=== PATIENT | male | born 1955 | race Hispanic/Latino ===

== ENCOUNTER 2019-03-28 01:56 | Inpatient (IN) | payer OTHER ==
[~2019-03-28] VITALS: Ht 172.7 cm; Wt 98.0 kg
[2019-03-28] VITALS (17 sets, daily range): BP systolic 97–179; BP diastolic 56–81
--- NOTE | 2019-03-28 03:00 | NUR ---
Patient arrived on unit. C/O 12/03 intermittent chest pain. No s/s or distress. Vitals WNL Denies SOB. Patient ambulates with steady gait. Consent for Heart Cath and new admission paperwork signed. Patient clipped and prepped for Heart Cath. Will bring home meds. AJ, FACE MAN aware patient has arrived.
[2019-03-28] MEDS ORDERED: ONDANSETRON HCL 4 MG/2 ML VIAL IV PRN (03:45)
[2019-03-28 04:53] LABS: BASOPHILS % (AUTO) 0.5 % (0.0-5.0); HEMATOCRIT 39.1 % (42-54); MEAN CORPUSCULAR HGB CONC 36.4 g/dL (32.0-36.0); MEAN CORPUSCULAR VOLUME 93.3 fL (79-99); MONOCYTES % (AUTO) 10.1 % (3.0-13.0); NEUTROPHILS % (AUTO) 54.4 % (40.0-77.0); NUCLEATED RED BLOOD CELLS 0.1 % (0.0-0.19); PLATELET COUNT (AUTO) 124 K/uL (130-400); RED BLOOD CELL COUNT(AUTO) 4.19 MIL/uL (4.50-6.20); RED CELL DISTRIBUTION WIDTH 12.5 % (11.0-15.5); WHITE BLOOD COUNT (AUTO) 5.2 K/uL (4.8-10.8)
[2019-03-28 05:08] LABS: ALBUMIN 3.8 g/dL (3.5-5.0); BILIRUBIN,TOTAL 0.8 mg/dL (0.2-1.0); TOTAL PROTEIN, SERUM 6.7 g/dL (6.0-8.3)
[2019-03-28] MEDS: INSULIN HUMULIN R 100 UNIT/ML 3ML SQ SCH ×4 (06:21→21:00)
--- NOTE | 2019-03-28 07:35 | NUR ---
ASSESSMENT ENCOUNTERED PT A&OX3, CALM COOPERATIVE AND DOES NOT APPEAR TO BE IN ANY DISTRESS NOR ANY NEURO DEFICITS PRESENT. PT DENIES PAIN, SOB, NAUSEA. PT IS AMBULATORY, GAIT STEADY AND STRONG WITH STAND BY ASSIST. PT IS NPO FOR [facility] BY DR ARREDONDO, CALL LIGHT WITHIN REACH, FAMILY AT BEDSIDE.
[2019-03-28] MEDS ORDERED: NITROGLYCERIN 0.4 MG SL TAB SL ONE (08:31)
[2019-03-28] MEDS: MORPHINE SULFATE 4 MG/1ML SYG IV PRN ×2 (08:35→12:10)
--- NOTE | 2019-03-28 08:35 | NUR ---
HEADACHE PAIN SCALE 8/10, TO NUCHAL AREA, PAIN WITH TURNING, NO NEURO DEFICITS, MORPHINE 2MG IV GIVEN.
[2019-03-28] MEDS: FAMOTIDINE/PF 20 MG/2 ML VIAL IV SCH ×2 (08:37→20:06)
[2019-03-28] MEDS ORDERED: METF-446 PO (09:04)
[2019-03-28] MEDS ORDERED: METO-408 PO (09:04)
[2019-03-28] MEDS ORDERED: LOSA25TA41 PO (09:04)
[2019-03-28] MEDS ORDERED: METF-445 PO (09:04)
[2019-03-28] MEDS ORDERED: PRAS5TAB6 PO (09:04)
[2019-03-28] MEDS ORDERED: ATOR-2 PO (09:04)
[2019-03-28] MEDS ORDERED: FENO145T37 PO (09:04)
--- NOTE | 2019-03-28 12:07 | NUR ---
DC PLAN VISITED WITH PATIENT. PATIENT LIVES WITH SPOUSE. INDEPENDENT ABLE TO PERFORM ADL'S. PATIENT HAS NO SERVICES OR DME'S. FEELS SAFE TO RETURN HOME. Addendum: 03/28/19 at 1209 by JOVITA LALA RN CM Amended: Links added.
--- NOTE | 2019-03-28 12:10 | NUR ---
HEADACHE RETURNS, 06/02, DR HOLLIS UPDATED, ORDERS RECEIVED
[2019-03-28] MEDS ORDERED: HEPARIN SODIUM 1000UNIT/ML 10ML VIAL IV ONE (12:44)
[2019-03-28] MEDS ORDERED: CALCIUM CHLORIDE 100 MG/ML 10 ML SYG IVP ONE (12:44)
--- NOTE | 2019-03-28 15:50 | NUR ---
Duglas ABEBE PA-C AT BEDSIDE UPDATE GIVEN, ORDERS RECEIVED.
[2019-03-28] MEDS ORDERED: TROLAMINE SALICYLATE CREAM 85 GM TUBE TP PRN (16:00)
[2019-03-28] MEDS ORDERED: LIDOCAINE HCL 2% 20ML ONE (17:55)
[2019-03-28] MEDS ORDERED: IOHEXOL-350 50ML VIAL IV ONE (17:55)
[2019-03-28] MEDS ORDERED: NITROGLYCERIN 5 MG/ML 10 ML VIAL IV ONE (17:55)
[2019-03-28] MEDS ORDERED: IOHEXOL 350 MG/ML 100ML INFUS..BTL IV ONE (17:55)
[2019-03-28] MEDS ORDERED: MIDAZOLAM HCL 1 MG/ML 2ML VIAL ONE (18:00)
[2019-03-28] MEDS ORDERED: FENTANYL CITRATE PF 50 MCG/1 ML 2ML VIAL ONE (18:00)
[2019-03-28] MEDS ORDERED: LABETALOL HCL 5 MG/ML 20ML VIAL IV ONE (18:20)
[2019-03-28] MEDS ORDERED: SODIUM CHLORIDE 0.9% 1000ML 1,000 ML IV SCH (18:24)
[2019-03-28] MEDS ORDERED: HYDRALAZINE HCL 20 MG/ML VIAL IV PRN (18:30)
[2019-03-28] MEDS ORDERED: METOPROLOL TARTRATE 1 MG/ML 5ML VIAL IV PRN (18:30)
--- NOTE | 2019-03-28 18:30 | NUR ---
POST PROCEDURE RECEIVED PT FROM CHEMICAL DETECTION EXPERT IN FLAT POSITION, A&OX3, CALM COOPERATIVE AND DOES NOT APPEAR TO BE IN ANY DISTRESS NOR ANY NEURO DEFICITS PRESENT. 6FR SHEATH TO RT GROIN, SITE DRY AND INTACT. CALL LIGHT WITHIN REACH, FAMILY AT BEDSIDE.
--- NOTE | 2019-03-28 19:25 | NUR ---
RIGHT FEMORAL SHEATH PULLED AT THIS TIME. PRESSURE APPLIED FOR 30 MINUTES. MINIMAL BLEEDING NOTED. BILATERAL DORSALIS PEDIS AND POSTERIOR TIBIAL PULSES NOTED. INCISION SITE DRESSED WITH A 4X4 GAUZE AND TRANSPARENT DRESSING. PATIENT INSTRUCTED TO REMAIN FLAT FOR 6 HOURS. PATIENT VERBALIZED UNDERSTANDING
[2019-03-28] MEDS: ATORVASTATIN CALCIUM 20 MG TABLET PO SCH (20:06)
[2019-03-28] MEDS: CARVEDILOL 6.25 MG TABLET PO SCH (20:07)
[2019-03-28] MEDS ORDERED: INSULIN HUMULIN R 100 UNIT/ML 3ML SQ SCH (21:00)
[2019-03-28] MEDS ORDERED: LISINOPRIL 5 MG TABLET PO SCH (21:00)
[2019-03-29] VITALS (22 sets, daily range): BP systolic 109–172; BP diastolic 51–74
[2019-03-29] MEDS ORDERED: ACETAMINOPHEN 325 MG TAB ONE (03:06)
[2019-03-29] MEDS ORDERED: CYCLOBENZAPRINE HCL 10 MG TABLET PO PRN (03:15)
[2019-03-29] MEDS ORDERED: ACETAMINOPHEN 325 MG TAB PO PRN ×3 (03:15→14:45)
[2019-03-29 03:34] LABS: BASOPHILS % (AUTO) 0.6 % (0.0-5.0); EOSINOPHILS % (AUTO) 1.3 % (0.0-8.0); HEMATOCRIT 40.9 % (42-54); LYMPHOCYTES % (AUTO) 23.4 % (21.0-51.0); MEAN CORPUSCULAR HEMOGLOBIN 32.4 pg (27.0-33.0); MEAN CORPUSCULAR HGB CONC 34.4 g/dL (32.0-36.0); MEAN CORPUSCULAR VOLUME 94.2 fL (79-99); MONOCYTES % (AUTO) 11.5 % (3.0-13.0); NEUTROPHILS % (AUTO) 63.2 % (40.0-77.0); PLATELET COUNT (AUTO) 127 K/uL (130-400); RED BLOOD CELL COUNT(AUTO) 4.34 MIL/uL (4.50-6.20); RED CELL DISTRIBUTION WIDTH 12.8 % (11.0-15.5); WHITE BLOOD COUNT (AUTO) 6.2 K/uL (4.8-10.8)
[2019-03-29 03:48] LABS: CREATININE 0.9 mg/dL (0.5-1.5); POTASSIUM 4.5 mmol/L (3.5-5.1)
[2019-03-29 04:04] LABS: B-TYPE NATRIURETIC PEPTIDE 79 pg/mL (0-100)
[2019-03-29] MEDS: INSULIN HUMULIN R 100 UNIT/ML 3ML SQ SCH (06:37)
--- NOTE | 2019-03-29 07:35 | NUR ---
ASSESSMENT ENCOUNTERED PT A&OX3, CALM COOPERATIVE AND DOES NOT APPEAR TO BE IN ANY DISTRESS NOR ANY NEURO DEFICITS PRESENT. PT DENIES PAIN, SOB, NAUSEA. RT GROIN SOFT NONTENDER WITH NO OOZING OR HEMATOMA PRESENT. DP/PT PULSES PALPABLE. PT IS NPO UNTIL SEEN BY DR LIN FOR POSSIBLE CABG. CALL LIGHT WITHIN REACH, FAMILY AT BEDSIDE.
--- NOTE | 2019-03-29 07:45 | NUR ---
DR LIN AT BEDSIDE UPDATE GIVEN, ORDERS RECEIVED FOR CABG.
[2019-03-29 08:03] LABS: HEMOGLOBIN A1C 7.7 % (4.0-6.0)
[2019-03-29 08:07] LABS: INR 0.98 (0.85-1.15); PROTHROMBIN TIME 10.3 SEC (9.6-11.6)
[2019-03-29] MEDS ORDERED: ISOSORBIDE MONO 30MG TAB SR PO SCH (09:00)
[2019-03-29] MEDS: ASPIRIN 325MG EC TAB 325 MG TABLET.DR PO SCH (09:00)
[2019-03-29] MEDS: CARVEDILOL 6.25 MG TABLET PO SCH (10:16)
[2019-03-29] MEDS: FAMOTIDINE/PF 20 MG/2 ML VIAL IV SCH ×2 (10:17→20:34)
[2019-03-29] MEDS ORDERED: CEFAZOLIN SODIUM 1 GM VIAL ONE ×2 (12:53→13:17)
[2019-03-29] MEDS ORDERED: PAPAVERINE HCL 30 MG/ML 2ML VIAL ONE (13:17)
[2019-03-29] MEDS ORDERED: BACITRACIN 50,000 UNIT VIAL ONE (13:17)
[2019-03-29] MEDS ORDERED: PROPOFOL 10 MG/ML 20ML VIAL IV ONE (13:19)
[2019-03-29] MEDS ORDERED: SODIUM BICARB 50MEQ 50ML VIAL ONE ×2 (13:19→15:55)
[2019-03-29] MEDS ORDERED: NOREPINEPHRINE BITARTRATE 1 MG/1 ML ML IV ONE (13:19)
[2019-03-29] MEDS ORDERED: PROTAMINE SULFATE 10 MG/ML 25ML VIAL IV ONE (13:19)
[2019-03-29] MEDS ORDERED: LIDOCAINE PF 2% 5ML ABBOJECT ONE (13:19)
[2019-03-29] MEDS ORDERED: FENTANYL CITRATE PF 50 MCG/1 ML 20ML VIAL IJ ONE (13:19)
[2019-03-29] MEDS ORDERED: EPINEPHRINE 1 MG/ML AMPULE ONE (13:19)
[2019-03-29] MEDS ORDERED: ESMOLOL HCL 10 MG/ML 10 ML VIAL ONE (13:19)
[2019-03-29] MEDS ORDERED: AMINOCAPROIC ACID 250 MG/ML 20 ML VIAL IV ONE (13:19)
[2019-03-29] MEDS ORDERED: HEPARIN SODIUM 1000UNIT/ML 10ML VIAL ONE (13:19)
[2019-03-29] MEDS ORDERED: ROCURONIUM 10MG/1ML SYR 10 MG/ML ML ONE ×2 (13:20→16:12)
[2019-03-29] MEDS ORDERED: MIDAZOLAM HCL 1 MG/ML 5ML VIAL ONE (13:20)
[2019-03-29] MEDS ORDERED: ETOMIDATE 2 MG/ML 10 ML VIAL ONE (13:20)
[2019-03-29] MEDS ORDERED: VASOPRESSIN 20 UNITS/ML 1ML VIAL ONE (13:21)
[2019-03-29] MEDS ORDERED: AMIODARONE HCL 50 MG/ML 3 ML VIAL ONE (13:21)
[2019-03-29] MEDS ORDERED: GLYCOPYRROLATE 1 MG/5 ML SYRINGE ONE (13:21)
[2019-03-29] MEDS ORDERED: EPINEPHRINE 1 MG/ML 30ML VIAL IJ ONE (13:22)
[2019-03-29] MEDS ORDERED: MAGNESIUM SULFATE 1 GM/2 ML VIAL ONE (13:22)
[2019-03-29] MEDS ORDERED: NITROGLYCERIN 50 MG/D5% WATER 1 BOT ONE (13:23)
[2019-03-29] MEDS ORDERED: SODIUM CHLORIDE 0.9% 10 ML VIAL ONE (13:26)
[2019-03-29] MEDS ORDERED: THROMBIN-JMI 5000 UNIT/VIAL TP ONE (14:16)
[2019-03-29 14:39] LABS: ABG BASE EXCESS -2.3 mmol/L (-2.0-3.0); ABG HCO3 21.7 mmol/L (21.0-28.0); ABG PCO2 36 mmHg (35-48)
[2019-03-29] MEDS ORDERED: SODIUM CHLORIDE 0.9% 500ML 500 ML IV SCH (14:41)
[2019-03-29] MEDS ORDERED: PROPOFOL 1000 MG/100 ML 100 ML IV PRN (14:45)
[2019-03-29] MEDS ORDERED: MORPHINE SULFATE 4 MG/1ML SYG IV PRN (14:45)
[2019-03-29] MEDS ORDERED: POTASSIUM PHOS 15 mMOL+NS250ML 250 ML IV PRN (14:45)
[2019-03-29] MEDS: SODIUM CHLORIDE 0.9% 1000ML 1,000 ML IV SCH (14:45)
[2019-03-29] MEDS ORDERED: DEXTROSE 50%-WATER 50 ML DISP.SYRIN IV PRN (14:45)
[2019-03-29] MEDS ORDERED: NOREPINEPHRINE 4MG/NS 250ML 250 ML IV PRN (14:45)
[2019-03-29] MEDS ORDERED: ACETAMINOPHEN 650 MG SUPPOSITORY RC PRN (14:45)
[2019-03-29] MEDS ORDERED: MORPHINE SULFATE 2 MG/ML 1ML SYG IV PRN (14:45)
[2019-03-29] MEDS ORDERED: AMINOCAPROIC ACID 15,000 MG in SODIUM CHLORIDE 0.9% 250 ML IV SCH (14:45)
[2019-03-29] MEDS ORDERED: SODIUM CHLORIDE 0.9% 10 ML VIAL IVP PRN (14:45)
[2019-03-29] MEDS ORDERED: INSULIN REGULAR, HUMAN 3ML 100 UNIT in SODIUM CHLORIDE 0.9% 99 ML IV SCH ×2 (14:45)
[2019-03-29] MEDS ORDERED: ONDANSETRON HCL 4 MG/2 ML VIAL IV PRN (14:45)
[2019-03-29] MEDS ORDERED: GLUCAGON 1MG KIT 1 MG ML IM PRN (14:45)
[2019-03-29] MEDS ORDERED: CALCIUM GLUCONATE 1 GM in SODIUM CHLORIDE 0.9% 50 ML IV PRN (14:45)
[2019-03-29] MEDS ORDERED: SODIUM CHLORIDE 0.9% 250 ML IV PRN (14:45)
[2019-03-29] MEDS ORDERED: EPINEPHRINE 8 MG in DEXTROSE 5%-WATER 250 ML IV PRN (14:45)
[2019-03-29 15:50] LABS: ABG BASE EXCESS -1.1 mmol/L (-2.0-3.0); ABG HCO3 22.7 mmol/L (21.0-28.0); ABG OXYGEN SATURATION 99.1 % (95.0-99.0); ABG PCO2 35 mmHg (35-48)
[2019-03-29 16:47] LABS: ABG PCO2 38 mmHg (35-48)
[2019-03-29] MEDS ORDERED: INSULIN HUMULIN R 100 UNIT/ML 3ML ONE (16:52)
[2019-03-29] MEDS ORDERED: POTASSIUM CHLORIDE 20MEQ/100ML 200 ML IV ONE (16:52)
[2019-03-29 17:52] LABS: ABG BASE EXCESS 0.1 mmol/L (-2.0-3.0); ABG HCO3 24.8 mmol/L (21.0-28.0); ABG OXYGEN SATURATION 98.7 % (95.0-99.0); ABG PCO2 41 mmHg (35-48)
[2019-03-29] MEDS ORDERED: POTASSIUM CHLORIDE 20MEQ/100ML 100 ML IV ONE (18:25)
[2019-03-29 18:31] LABS: ABG BASE EXCESS -0.8 mmol/L (-2.0-3.0); ABG HCO3 23.2 mmol/L (21.0-28.0); ABG OXYGEN SATURATION 98.5 % (95.0-99.0); ABG PCO2 36 mmHg (35-48)
[2019-03-29] MEDS ORDERED: ALBUTEROL SULFATE 0.083% 2.5 MG/3 ML INH IH ONE (19:26)
[2019-03-29 19:30] LABS: ABG BASE EXCESS -0.8 mmol/L (-2.0-3.0); ABG OXYGEN SATURATION 91.8 % (95.0-99.0); ABG PCO2 40 mmHg (35-48)
--- NOTE | 2019-03-29 19:30 | NUR ---
PT RECEIVED FROM OR, DROWSY, BUT RESPONDING TO VERBAL STIMULI. PT PLACED ON CVR MONITOR AND ON VENTILATOR ON SIMV: TV-650, R-12,PS-10.PEEP-5,FIO2-60%. ETT PLACEMENT VERIFIED BY CXR. RIGHT IJ CORDIS WITH DRESSING INTACT INFUSING EPI@ 0.03MCG/KG/MIN,LEVO @ 1MCG/MIN, AND AMICAR AT 55ML/HR. LEFT RADIAL A-LINE ZEROED AND SECURED. DRESSING TO MIDLINE INCISION DRY AND INTACT. CT X2 SECURED AND PLACED TO LOW CONTINUOUS SUCTION. NO AIR LEAK NOTED. QUAN WRAP TO LEFT LEG D/I. DONNA HOSE PLACED TO RLE. TEMP SENSING F/C WITH ADEQUATE URINE OUTPUT. PULSES PALPATED X4; ABLE TO MOVE ALL EXTREMITIES. PROPOFOL STARTED REQUESTED BY DR. KNIGHT. DR. LIN UPDATED ON PT STATUS. INSTRUCTED TO ADMINISTER ALBUMIN 5% 500MLS AND TO WEAN PT OFF DRIPS.
[2019-03-29] MEDS ORDERED: IPRATROPIUM/ALBUTEROL SULFATE 3 ML SOLUTION IH ONE (19:31)
[2019-03-29 19:37] LABS: HEMATOCRIT 33.6 % (42-54); MEAN CORPUSCULAR HEMOGLOBIN 32.6 pg (27.0-33.0); MEAN CORPUSCULAR HGB CONC 35.1 g/dL (32.0-36.0); MEAN CORPUSCULAR VOLUME 92.8 fL (79-99); PLATELET COUNT (AUTO) 135 K/uL (130-400); RED BLOOD CELL COUNT(AUTO) 3.62 MIL/uL (4.50-6.20); RED CELL DISTRIBUTION WIDTH 12.5 % (11.0-15.5); WHITE BLOOD COUNT (AUTO) 11.8 K/uL (4.8-10.8)
[2019-03-29 19:48] LABS: CREATININE 0.9 mg/dL (0.5-1.5); MAGNESIUM 1.4 mg/dL (1.80-2.40); PHOSPHORUS 2.6 mg/dL (2.5-4.9); POTASSIUM 4.1 mmol/L (3.5-5.1)
[2019-03-29 19:53] LABS: INR 1.08 (0.85-1.15); PARTIAL THROMBOPLASTIN TIME 24.7 SEC (26.3-35.5); PROTHROMBIN TIME 11.3 SEC (9.6-11.6)
[2019-03-29] MEDS: CEFAZOLIN SODIUM 1 GM VIAL IV SCH (20:33)
[2019-03-29] MEDS: MAGNESIUM 2GM PREMIX 50ML 50 ML IV PRN (20:33)
[2019-03-29] MEDS: ALBUMIN (HUMAN) 5% 250 ML IV PRN (20:34)
[2019-03-29 20:38] LABS: ABG BASE EXCESS -2.2 mmol/L (-2.0-3.0); ABG HCO3 22.4 mmol/L (21.0-28.0); ABG OXYGEN SATURATION 95.4 % (95.0-99.0); ABG PCO2 38 mmHg (35-48)
[2019-03-29] MEDS ORDERED: CALCIUM GLUCONATE 1 GM/10 ML VIAL IV ONE (20:50)
[2019-03-29] MEDS: SODIUM BICARB 50MEQ 50ML VIAL IV PRN ×3 (20:53→22:15)
[2019-03-29] MEDS: ATORVASTATIN CALCIUM 20 MG TABLET PO SCH (21:00)
[2019-03-29 21:53] LABS: ABG HCO3 23.1 mmol/L (21.0-28.0); ABG PCO2 36 mmHg (35-48)
[2019-03-29 21:58] LABS: ABG BASE EXCESS -2.8 mmol/L (-2.0-3.0); ABG HCO3 20.4 mmol/L (21.0-28.0); ABG OXYGEN SATURATION 98.3 % (95.0-99.0); ABG PCO2 31 mmHg (35-48)
[2019-03-29 23:22] LABS: ABG BASE EXCESS 3.9 mmol/L (-2.0-3.0); ABG OXYGEN SATURATION 95.4 % (95.0-99.0); ABG PCO2 41 mmHg (35-48)
[2019-03-29] MEDS: IPRATROPIUM/ALBUTEROL SULFATE 3 ML SOLUTION IH SCH (23:35)
[2019-03-30] VITALS (45 sets, daily range): BP systolic 119–187; BP diastolic 53–96
[2019-03-30] MEDS: POTASSIUM CHLORIDE 20MEQ/100ML 100 ML IV PRN ×2 (00:29→05:18)
[2019-03-30 00:34] LABS: ABG BASE EXCESS 2.5 mmol/L (-2.0-3.0); ABG HCO3 26.1 mmol/L (21.0-28.0); ABG OXYGEN SATURATION 96.8 % (95.0-99.0); ABG PCO2 37 mmHg (35-48)
[2019-03-30 01:15] LABS: ABG BASE EXCESS 1.5 mmol/L (-2.0-3.0); ABG HCO3 24.5 mmol/L (21.0-28.0); ABG OXYGEN SATURATION 97.7 % (95.0-99.0); ABG PCO2 34 mmHg (35-48)
[2019-03-30] MEDS ORDERED: CALCIUM GLUCONATE 1 GM/10 ML VIAL IV ONE ×2 (01:27→05:14)
[2019-03-30] MEDS: TRAMADOL HCL 50 MG TABLET PO PRN ×4 (01:54→16:44)
[2019-03-30 02:18] LABS: ABG BASE EXCESS 0.8 mmol/L (-2.0-3.0); ABG HCO3 24.9 mmol/L (21.0-28.0); ABG OXYGEN SATURATION 92.8 % (95.0-99.0); ABG PCO2 38 mmHg (35-48)
[2019-03-30] MEDS ORDERED: METOPROLOL TARTRATE 25 MG TAB PO SCH ×2 (02:45→09:00)
--- NOTE | 2019-03-30 02:50 | NUR ---
MD UPDATE DR. LIN NOTIFIED OF PATIENT'S COMPLAINT OF PAIN NOT SUBSIDING WITH TRAMADOL, TACHYPNEA WITH DECREASE IN PO2, AND ELEVATED BP. EXTRA DOSE OF PAIN MEDICATION APPROVED BY MD AND BETA RADHA STARTED INSTRUCTED. PT ENCOURAGED TO USE IS TO HELP IMPROVE SATURATIONS.
[2019-03-30] MEDS ORDERED: METOPROLOL TARTRATE 25 MG TAB ONE (02:57)
[2019-03-30 03:23] LABS: ABG BASE EXCESS 0.4 mmol/L (-2.0-3.0); ABG HCO3 24.4 mmol/L (21.0-28.0); ABG OXYGEN SATURATION 94.4 % (95.0-99.0); ABG PCO2 37 mmHg (35-48)
[2019-03-30] MEDS: CEFAZOLIN SODIUM 1 GM VIAL IV SCH ×2 (03:50→11:37)
[2019-03-30] MEDS: NITROGLYCERIN 50 MG/D5% WATER 250 BOT IV SCH ×2 (03:56→08:15)
[2019-03-30 04:38] LABS: HEMATOCRIT 31.8 % (42-54); MEAN CORPUSCULAR HEMOGLOBIN 34.3 pg (27.0-33.0); MEAN CORPUSCULAR HGB CONC 36.9 g/dL (32.0-36.0); PLATELET COUNT (AUTO) 125 K/uL (130-400); RED BLOOD CELL COUNT(AUTO) 3.42 MIL/uL (4.50-6.20); RED CELL DISTRIBUTION WIDTH 12.6 % (11.0-15.5); WHITE BLOOD COUNT (AUTO) 10.1 K/uL (4.8-10.8)
[2019-03-30 04:47] LABS: INR 1.04 (0.85-1.15); PARTIAL THROMBOPLASTIN TIME 23.1 SEC (26.3-35.5); PROTHROMBIN TIME 10.9 SEC (9.6-11.6)
[2019-03-30 05:03] LABS: CREATININE 0.9 mg/dL (0.5-1.5); MAGNESIUM 1.8 mg/dL (1.80-2.40); PHOSPHORUS 2.7 mg/dL (2.5-4.9); POTASSIUM 3.4 mmol/L (3.5-5.1)
[2019-03-30] MEDS: MAGNESIUM 2GM PREMIX 50ML 50 ML IV PRN (05:19)
[2019-03-30] MEDS: IPRATROPIUM/ALBUTEROL SULFATE 3 ML SOLUTION IH SCH ×3 (06:40→18:03)
[2019-03-30 06:50] LABS: ABG BASE EXCESS 0.3 mmol/L (-2.0-3.0); ABG OXYGEN SATURATION 94.5 % (95.0-99.0); ABG PCO2 46 mmHg (35-48)
--- NOTE | 2019-03-30 07:32 | NUR ---
DR LIN CALLS ME. HE WAS UPDATED ON V/S,IO'S/MEDS/LABS/FINDINGS. ORDERS RECEIVED. PT IS AWAKE AND ALERT. ANXIOUS AT TIMES. SOB ON EXERTION. ALL TUBES AND LINES INTACT. STABLE
[2019-03-30] MEDS: METOPROLOL TARTRATE 25 MG TAB PO SCH ×3 (08:13→20:38)
[2019-03-30] MEDS: ASPIRIN 325MG EC TAB 325 MG TABLET.DR PO SCH (08:13)
[2019-03-30] MEDS: FAMOTIDINE/PF 20 MG/2 ML VIAL IV SCH ×2 (08:14→20:39)
[2019-03-30] MEDS: POTASSIUM CHLORIDE 20 MEQ ERTAB PO SCH ×2 (08:14→20:39)
[2019-03-30] MEDS: FUROSEMIDE 10 MG/ML 2ML VIAL IV SCH ×2 (08:15→20:40)
--- NOTE | 2019-03-30 10:00 | NUR ---
PT IS NOW OUT OF BED IN CARDIAC CHAIR-TRANSFER PER PHYSICAL THERAPY. NO INJURIES. TOLERATED WELL. LESS SOB
[2019-03-30] MEDS: SODIUM CHLORIDE 0.9% 1000ML 1,000 ML IV SCH (14:45)
--- NOTE | 2019-03-30 14:52 | NUR ---
DR YIP MADE ROUNDS- CONTINUE SAME. THANK YOU
--- NOTE | 2019-03-30 16:52 | NUR ---
PT TRANSFERRED BACK TO BED. SOME DEGREE OF PAIN- MEDICATED PLEASE SEE EMAR
--- NOTE | 2019-03-30 17:42 | NUR ---
PT BP BEGINNING TO RISE-ABP 176/70-NIBP 165/83. I HAVE RESUMED TRIDIL DRIP AT 10MCG/MIN
--- NOTE | 2019-03-30 18:52 | NUR ---
HAND OFF REPORT GIVEN TO KIM WATSON
[2019-03-30] MEDS: ATORVASTATIN CALCIUM 20 MG TABLET PO SCH (20:38)
[2019-03-31] VITALS (52 sets, daily range): BP systolic 111–197; BP diastolic 52–108
[2019-03-31] MEDS: IPRATROPIUM/ALBUTEROL SULFATE 3 ML SOLUTION IH SCH ×5 (00:34→23:10)
[2019-03-31] MEDS: TRAMADOL HCL 50 MG TABLET PO PRN ×3 (00:49→19:24)
[2019-03-31 04:29] LABS: HEMATOCRIT 32.5 % (42-54); MEAN CORPUSCULAR HEMOGLOBIN 34.1 pg (27.0-33.0); MEAN CORPUSCULAR HGB CONC 36.3 g/dL (32.0-36.0); MEAN CORPUSCULAR VOLUME 94.1 fL (79-99); PLATELET COUNT (AUTO) 123 K/uL (130-400); RED BLOOD CELL COUNT(AUTO) 3.46 MIL/uL (4.50-6.20); RED CELL DISTRIBUTION WIDTH 12.9 % (11.0-15.5); WHITE BLOOD COUNT (AUTO) 12.1 K/uL (4.8-10.8)
[2019-03-31 04:50] LABS: CREATININE 0.9 mg/dL (0.5-1.5); MAGNESIUM 1.9 mg/dL (1.80-2.40); POTASSIUM 3.9 mmol/L (3.5-5.1)
[2019-03-31] MEDS: MAGNESIUM 2GM PREMIX 50ML 50 ML IV PRN (04:56)
--- NOTE | 2019-03-31 05:15 | NUR ---
BATH PT GIVEN BED BATH AT THIS TIME DID NOT GET UP DUE TO INCREASED SHORTNESS OF BREATH AND TACHYPNEA. PT ENCOURAGED TO TAKE SLOW DEEP BREATHS. WILL CONTINUE TO MONITOR.
[2019-03-31] MEDS: INSULIN HUMULIN R 100 UNIT/ML 3ML SQ SCH ×4 (07:30→20:36)
[2019-03-31] MEDS: ASPIRIN 325MG EC TAB 325 MG TABLET.DR PO SCH (08:26)
[2019-03-31] MEDS: FAMOTIDINE/PF 20 MG/2 ML VIAL IV SCH ×2 (08:26→20:46)
[2019-03-31] MEDS: METOPROLOL TARTRATE 25 MG TAB PO SCH ×3 (08:26→20:40)
[2019-03-31] MEDS: POTASSIUM CHLORIDE 20 MEQ ERTAB PO SCH ×2 (08:27→20:41)
[2019-03-31] MEDS: FUROSEMIDE 10 MG/ML 2ML VIAL IV SCH ×2 (08:27→20:46)
[2019-03-31] MEDS: LOSARTAN 100 MG TABLET PO SCH (08:47)
[2019-03-31] MEDS: ATORVASTATIN CALCIUM 20 MG TABLET PO SCH (20:40)
[2019-03-31] MEDS ORDERED: TAMSULOSIN HCL 0.4 MG CAP.ER.24H PO ONE (21:15)
--- NOTE | 2019-03-31 21:15 | NUR ---
MD ROUNDS DR LIN AT THE BEDSIDE UPDATED ON PATIENT CONDITION. SON AT THE BEDSIDE. LABS, CHEST X-RAY AND MEDICATIONS REVIEWED. ORDERS RECEIVED TO DISCONTINUE CHEST TUBES. KEEP ANDERSEN CATHETER FOR NOW. NEW MEDICATIONS AND LAB ORDERS RECEIVED AND ENTERED INTO SYSTEM.
[2019-03-31] MEDS ORDERED: TAMSULOSIN HCL 0.4 MG CAP.ER.24H ONE (22:19)
--- NOTE | 2019-03-31 22:20 | NUR ---
CHEST TUBES CHEST TUBES DISCONTINUED WITH ASSIST. CHEST TUBE LEVEL 1110. PATIENT TOLERATED WELL. DENIES PAIN. POSITIONED TO COMFORT
[2019-03-31] MEDS: METOCLOPRAMIDE 10 MG/2 ML VIAL IVP SCH (22:36)
--- NOTE | 2019-03-31 23:05 | NUR ---
STATUS DR BRAD SEGOVIA. UPDATED ON PATIENT CONDITION. NO NEW ORDERS RECEIVED.
[2019-04-01] VITALS (12 sets, daily range): BP systolic 111–159; BP diastolic 65–81
[2019-04-01] MEDS: TRAMADOL HCL 50 MG TABLET PO PRN ×3 (02:55→08:45)
[2019-04-01] MEDS: METOCLOPRAMIDE 10 MG/2 ML VIAL IVP SCH ×4 (03:56→21:13)
[2019-04-01 04:03] LABS: BASOPHILS % (AUTO) 0.3 % (0.0-5.0); EOSINOPHILS % (AUTO) 0.7 % (0.0-8.0); HEMATOCRIT 33.9 % (42-54); LYMPHOCYTES % (AUTO) 9.8 % (21.0-51.0); MEAN CORPUSCULAR HEMOGLOBIN 33.1 pg (27.0-33.0); MEAN CORPUSCULAR VOLUME 94.6 fL (79-99); MONOCYTES % (AUTO) 10.7 % (3.0-13.0); NEUTROPHILS % (AUTO) 78.5 % (40.0-77.0); PLATELET COUNT (AUTO) 138 K/uL (130-400); RED BLOOD CELL COUNT(AUTO) 3.59 MIL/uL (4.50-6.20); RED CELL DISTRIBUTION WIDTH 12.8 % (11.0-15.5); WHITE BLOOD COUNT (AUTO) 10.3 K/uL (4.8-10.8)
[2019-04-01 04:27] LABS: CREATININE 0.9 mg/dL (0.5-1.5); MAGNESIUM 1.9 mg/dL (1.80-2.40); PHOSPHORUS 2.3 mg/dL (2.5-4.9)
--- NOTE | 2019-04-01 04:40 | NUR ---
STATUS 0350 PATIENT ANXIOUS STATING CANNOT BREATH AND HAS PAIN ON INSPIRATION TO LEFT CHEST. STATED THE PAIN WAS ONSET GRADUALLY AND NOW IS INTOLERABLE. RADIOLOGY CALLED, X-RAY TAKEN. PATIENT WAS MEDICATED FOR PAIN 30 MINUTES PREVIOUSLY. POSITIONED FOR COMFORT. 0430 PATIENT RESTING COMFORTABLY WITH EYES CLOSED.
[2019-04-01] MEDS: MAGNESIUM 2GM PREMIX 50ML 50 ML IV PRN (06:12)
[2019-04-01] MEDS: INSULIN HUMULIN R 100 UNIT/ML 3ML SQ SCH ×4 (06:35→21:00)
[2019-04-01] MEDS: IPRATROPIUM/ALBUTEROL SULFATE 3 ML SOLUTION IH SCH ×4 (06:39→23:25)
--- NOTE | 2019-04-01 07:00 | NUR ---
TRANSFER PATIENT TRANSFERRED TO ROOM 203 VIA CARDIAC CHAIR. PATIENT SITTING COMFORTABLY IN CHAIR NO SIGNS OF DISTRESS. PATIENT STATED HAS CALLED SPOUSE TO INFORM. REPORT GIVEN TO WALTER MAGALLANES
[2019-04-01] MEDS: LOSARTAN 100 MG TABLET PO SCH (08:42)
[2019-04-01] MEDS: ASPIRIN 325MG EC TAB 325 MG TABLET.DR PO SCH (08:42)
[2019-04-01] MEDS: POTASSIUM CHLORIDE 20 MEQ ERTAB PO SCH (08:43)
[2019-04-01] MEDS: TAMSULOSIN HCL 0.4 MG CAP.ER.24H PO SCH (08:45)
[2019-04-01] MEDS: FUROSEMIDE 10 MG/ML 2ML VIAL IV SCH (08:46)
[2019-04-01] MEDS: ENOXAPARIN SODIUM 40 MG/0.4 ML SYRINGE SQ SCH (08:46)
[2019-04-01] MEDS: FAMOTIDINE 20MG TAB 20 MG TAB PO SCH ×2 (08:46→20:35)
[2019-04-01] MEDS: METOPROLOL TARTRATE 25 MG TAB PO SCH ×3 (08:46→20:35)
[2019-04-01] MEDS: INSULIN GLARGINE 100 UNITS/ML 10 ML VIAL SQ SCH (11:58)
[2019-04-01] MEDS: ATORVASTATIN CALCIUM 20 MG TABLET PO SCH (20:35)
[2019-04-02 03:21] VITALS: BP 126/70
[2019-04-02 03:24] LABS: HEMATOCRIT 32.1 % (42-54); MEAN CORPUSCULAR HEMOGLOBIN 33.7 pg (27.0-33.0); MEAN CORPUSCULAR HGB CONC 35.7 g/dL (32.0-36.0); MEAN CORPUSCULAR VOLUME 94.4 fL (79-99); PLATELET COUNT (AUTO) 137 K/uL (130-400); RED CELL DISTRIBUTION WIDTH 12.4 % (11.0-15.5); WHITE BLOOD COUNT (AUTO) 7.3 K/uL (4.8-10.8)
[2019-04-02 03:41] LABS: POTASSIUM 3.9 mmol/L (3.5-5.1)
[2019-04-02] MEDS: IPRATROPIUM/ALBUTEROL SULFATE 3 ML SOLUTION IH SCH ×3 (06:37→18:50)
[2019-04-02] MEDS: INSULIN HUMULIN R 100 UNIT/ML 3ML SQ SCH ×4 (06:37→21:48)
[2019-04-02 07:46] VITALS: BP 130/67
[2019-04-02] MEDS: INSULIN GLARGINE 100 UNITS/ML 10 ML VIAL SQ SCH (08:37)
[2019-04-02] MEDS: FAMOTIDINE 20MG TAB 20 MG TAB PO SCH ×2 (08:37→21:00)
[2019-04-02] MEDS: POTASSIUM CHLORIDE 20 MEQ ERTAB PO SCH (08:37)
[2019-04-02] MEDS: ASPIRIN 81 MG EC TAB PO SCH (08:38)
[2019-04-02] MEDS: METOPROLOL TARTRATE 50 MG TAB PO SCH ×2 (08:38→21:00)
[2019-04-02] MEDS: LOSARTAN 100 MG TABLET PO SCH (08:38)
[2019-04-02] MEDS: TAMSULOSIN HCL 0.4 MG CAP.ER.24H PO SCH (08:38)
[2019-04-02] MEDS: FUROSEMIDE 20 MG TABLET PO SCH (08:38)
[2019-04-02] MEDS: ENOXAPARIN SODIUM 40 MG/0.4 ML SYRINGE SQ SCH (08:45)
--- NOTE | 2019-04-02 10:56 | NUR ---
CARMEL PLAN VISITED WITH PATIENT AND FAMILY. PATIENT SIGNED [facility] FOR WNR SN[facility]. INFO SENT SPOKE TO REP VISITED WITH PATIENT. WILL GO VIA FACILITY [facility]. SILVERIO PENDING. Addendum: 04/02/19 at 1057 by JOVITA LALA RN CM Amended: Links added.
[2019-04-02 11:41] VITALS: BP 112/60
[2019-04-02 15:30] VITALS: BP 125/63
[2019-04-02] MEDS: DEXTROSE 5 %-0.45 % NACL 1,000 ML IV SCH (17:32)
--- NOTE | 2019-04-02 17:43 | NUR ---
Nutrition Intervention: Nutrition screen based on LOS x 5 days. Pt. admitted with Dx of ACS, Non Stemi. Pt. S/P CABG(03/29/19). Pt. NPO for CT Abd. Pt. previously on 75gm CCD Heart Healthy diet with good p.o. intake until lunch today; pt. stated he put lemon juice on the fish which may have upset his stomach. Pt. c/o feeling bloated. Labs reviewed(Alb 3.8, BG 209, HgbA1c 7.7%). LBM: 03/28/19. SR-19, chest incision. BMI: 30.8, overweight for age. Pt. and family educated on Diabetic Heart healthy diet and provided with education material. Pt. / family verbalized understanding. Recommendations: 1) When diet resumed, rec. resume 75gm CCD Heart Healthy diet. 2) Rec. stool softener to help relieve lower GI distress. 3) Diabetic Heart healthy diet education given to pt. and family. 4) Continue to monitor pt's nutritional status. 5) Consult RD as nutrition concerns arise. Addendum: 04/02/19 at [address] Amended: Links added.
--- NOTE | 2019-04-02 17:50 | NUR ---
STATUS NG TUBE INSERTION ATTEMPTED, 12 FR & 18 FR, UNSUCCESSFUL. PURPOSE FOR NG TUBE EXPLAINED TO PT. PT REFUSED TO HAVE NG TUBE INSERTED. MD TO BE NOTIFIED. NPO STATUS REINFORCED @ THIS TIME.
--- NOTE | 2019-04-02 18:04 | NUR ---
MD NOTIFICATION DR YIP NOTIFIED PT REFUSED NG TUBE INSERTION AFTER 2 ATTEMPTS MADE W/ 12 FR & 18 FR NG TUBE.
--- NOTE | 2019-04-02 19:20 | NUR ---
Received report pt. is to be kept NPO .
[2019-04-02 19:27] VITALS: BP 147/67
[2019-04-02] MEDS: ATORVASTATIN CALCIUM 20 MG TABLET PO SCH (21:00)
[2019-04-02 23:26] VITALS: BP 148/79
[2019-04-03] MEDS: IPRATROPIUM/ALBUTEROL SULFATE 3 ML SOLUTION IH SCH ×5 (00:25→23:34)
[2019-04-03 03:47] VITALS: BP 152/80
[2019-04-03] MEDS: INSULIN HUMULIN R 100 UNIT/ML 3ML SQ SCH ×4 (06:07→21:00)
--- NOTE | 2019-04-03 07:14 | NUR ---
Pt. had a medium brown nirav like stool.He reported feeling much better but still feel slight abdominal discomfort.Assisted pt back to recliner.Remained stable.Bedside report given using SBAr all questions answered.
--- NOTE | 2019-04-03 07:45 | NUR ---
AM ASSESSMENT PT SITTING IN CARDIAC RECLINER, WATCHING TV. A/O X 3. NO SOB. NO DISTRESS NOTED. DENIES CHEST PAIN OR DISCOMFORT. DENIES INCISIONAL PAIN. TELE: SR 80s. STERNAL INCISION WELL APPROX. NO DRAINAGE NOTED. STERNAL PRECAUTIONS REINFORCED. IS 1000 ML. REINFORCED PURPOSE & IMPORTANCE OF IS. 16 FR ANDERSEN CATHETER PATENT & DRAINING. DENIES N/V AND/OR DIARRHEA. (+) BM TODAY. NPO STATUS REINFORCED. D5 0.45% NACL INFUSING @ 60 ML/HR. INSTRUCTED TO CALL FOR ASSISTANCE. CALL KAMERON W/IN REACH.
[2019-04-03 07:47] VITALS: BP 159/79
[2019-04-03] MEDS: TAMSULOSIN HCL 0.4 MG CAP.ER.24H PO SCH (09:00)
[2019-04-03] MEDS: ASPIRIN 81 MG EC TAB PO SCH (09:00)
[2019-04-03] MEDS: POTASSIUM CHLORIDE 20 MEQ ERTAB PO SCH (09:00)
[2019-04-03] MEDS: FUROSEMIDE 20 MG TABLET PO SCH (09:00)
[2019-04-03] MEDS: INSULIN GLARGINE 100 UNITS/ML 10 ML VIAL SQ SCH (09:00)
[2019-04-03] MEDS: METOPROLOL TARTRATE 50 MG TAB PO SCH ×2 (09:00→21:00)
[2019-04-03] MEDS: LOSARTAN 100 MG TABLET PO SCH (09:00)
[2019-04-03] MEDS: FAMOTIDINE 20MG TAB 20 MG TAB PO SCH ×2 (09:00→21:00)
[2019-04-03 11:56] VITALS: BP 148/79
[2019-04-03] MEDS ORDERED: BISACODYL 10 MG SUPP.RECT RC ONE (14:00)
--- NOTE | 2019-04-03 14:40 | NUR ---
ANDERSEN CATHETER BLADDER TRAINING STARTED @ 1300. 16 FR FC PATENT & DRAINING. CATHETER CLAMPED @ THIS TIME. PT INFORMED TO NOTIFY WHEN EXPERIENCED URGE TO VOID. STATES UNDERSTANDING. @ 1435 PT HAS URGE TO VOID. FC UNCLAMPED. URINE OUTPUT 150 ML. @ 1440 16 FR ANDERSEN CATHETER DISCONTINUED. NO RESISTANCE @ WITHDRAWAL. CATHETER TIP INTACT. PT INFORMED TO NOTIFY STAFF OF NEXT VOID. URINAL @ BEDSIDE.
[2019-04-03 15:25] VITALS: BP 132/84
[2019-04-03] MEDS: DEXTROSE 5 %-0.45 % NACL 1,000 ML IV SCH (17:21)
[2019-04-03] MEDS: ENOXAPARIN SODIUM 40 MG/0.4 ML SYRINGE SQ SCH (17:26)
[2019-04-03] MEDS ORDERED: PHARMACY COMMUNICATION MISC SCH (18:15)
[2019-04-03 19:48] VITALS: BP 153/81
[2019-04-03] MEDS ORDERED: LEVOFLOXACIN 500 MG/D5W 100 ML 100 ML IV SCH (20:00)
[2019-04-03] MEDS: ATORVASTATIN CALCIUM 20 MG TABLET PO SCH (21:00)
[2019-04-03 23:51] VITALS: BP 130/73
[2019-04-04] MEDS: DEXTROSE 5 %-0.45 % NACL 1,000 ML IV SCH (02:34)
--- NOTE | 2019-04-04 02:37 | NUR ---
Pt. resting comfortably at this time,respirations even and non labored. call light light placed within reach.
[2019-04-04] MEDS: INSULIN HUMULIN R 100 UNIT/ML 3ML SQ SCH ×3 (07:30→16:26)
[2019-04-04 07:38] VITALS: BP 163/80
[2019-04-04] MEDS: IPRATROPIUM/ALBUTEROL SULFATE 3 ML SOLUTION IH SCH ×3 (07:42→18:23)
[2019-04-04] MEDS: TAMSULOSIN HCL 0.4 MG CAP.ER.24H PO SCH (10:05)
[2019-04-04] MEDS: LOSARTAN 100 MG TABLET PO SCH (10:05)
[2019-04-04] MEDS: POTASSIUM CHLORIDE 20 MEQ ERTAB PO SCH (10:05)
[2019-04-04] MEDS: ASPIRIN 81 MG EC TAB PO SCH (10:05)
[2019-04-04] MEDS: FAMOTIDINE 20MG TAB 20 MG TAB PO SCH (10:05)
[2019-04-04] MEDS: METOPROLOL TARTRATE 50 MG TAB PO SCH (10:05)
[2019-04-04] MEDS: FUROSEMIDE 20 MG TABLET PO SCH (10:05)
[2019-04-04] MEDS: ENOXAPARIN SODIUM 40 MG/0.4 ML SYRINGE SQ SCH (10:06)
[2019-04-04] MEDS: INSULIN GLARGINE 100 UNITS/ML 10 ML VIAL SQ SCH (10:06)
[2019-04-04 11:14] VITALS: BP 173/80
[2019-04-04 11:24] VITALS: BP 155/85
--- NOTE | 2019-04-04 13:34 | NUR ---
DC PLAN PATIENT ACCEPTED TO [facility] DID NOT LEAVE YESTERDAY DUE TO POSS ILLEUS ON CT SCAN. PATIENT HAVING BM, PASSING GAS, TOLERATING DIET. SHOULD DC TODAY. JEAN CLAUDE DONE. WILL GO VIA FACILITY [facility]. Addendum: 04/04/19 at 1335 by JOVITA LALA RN CM Amended: Links added.
[2019-04-04 15:23] VITALS: BP 155/74
== END 2019-04-04 18:45 | DRG 233 ==
LOC: 2DH 02:47 → 2CV 03-29 13:12 → 2BH 03-30 06:38 → 2AH 04-01 07:45
PROVIDERS: ADMIT Internal Medicine; ATTEND Internal Medicine
PROC: 4A023N7 Measurement of Cardiac Sampling and Pressure, Left Heart, Percutaneous Approach (ICD-10-PCS; principal; 2019-03-28)
PROC: B2111ZZ Fluoroscopy of Multiple Coronary Arteries using Low Osmolar Contrast (ICD-10-PCS; 2019-03-28)
PROC: B2151ZZ Fluoroscopy of Left Heart using Low Osmolar Contrast (ICD-10-PCS; 2019-03-28)
PROC: 021209W Bypass Coronary Artery, Three Arteries from Aorta with Autologous Venous Tissue, Open Approach (ICD-10-PCS; 2019-03-28)
PROC: 06BQ4ZZ Excision of Left Saphenous Vein, Percutaneous Endoscopic Approach (ICD-10-PCS; 2019-03-28)
PROC: 02100Z9 Bypass Coronary Artery, One Artery from Left Internal Mammary, Open Approach (ICD-10-PCS; 2019-03-28)
PROC: 02100Z8 Bypass Coronary Artery, One Artery from Right Internal Mammary, Open Approach (ICD-10-PCS; 2019-03-28)
DX: T82.855A Stenosis of coronary artery stent, initial encounter (principal); I21.4 Non-ST elevation (NSTEMI) myocardial infarction; I50.32 Chronic diastolic (congestive) heart failure; D62 Acute posthemorrhagic anemia; I11.0 Hypertensive heart disease with heart failure; R00.1 Bradycardia, unspecified; D69.6 Thrombocytopenia, unspecified; M43.6 Torticollis; I25.2 Old myocardial infarction; Y71.2 Prosthetic and other implants, materials and accessory cardiovascular devices associated with adverse incidents; Y92.9 Unspecified place or not applicable
CPT/HCPCS: 36415; 70450; 71045; 72040; 74176; 80048; 80053; 80061; 82330; 82435; 82803; 82947; 82948; 83036; 83605; 83735; 83880; 84100; 84132; 84295; 85018; 85025; 85027; 85610; 85730; 86850; 86900; 86901; 86922; 93005; 93458; 93880; 94002; 94003; 94010; 94150; 94640; 94664; 97039; 99156; 99157; A7048; C1894; G0378; J0171; J0282; J0610; J0690; J1644; J1650; J1815; J1940; J1956; J2001; J2250; J2270; J2405; J2440; J2704; J2720; J2765; J3010; J3475; J3480; J3490; J7030; J7040; J7042; P9045; Q9967